=== PATIENT | male | born 1950 | race Caucasian/White ===

== ENCOUNTER → 2017-05-06 | Day surgery (SDC) | payer MEDICARE ==
[~2017-05-06] MED LIST: ASPI81 PO; ATOR80TA41 PO; BUPIVACAINE HCL PF 0.5% 30 ML VIAL ONE; CLON1TAB PO; KETOROLAC TROMETHAMINE 30 MG/ML (IVP) VIAL IV PUSH ONE; LISI5 PO; MEDR4PAK3 PO; MEPERIDINE HCL 50 MG/ML VIAL ONE; METO25 PO; MIDAZOLAM HCL 2 MG/2 ML VIAL ONE; NORC10TA2 PO; ONDANSETRON HCL 4 MG/2 ML VIAL IV PUSH ONE; OXYC10TA8 PO; PERC10TA27 PO; PROPOFOL 200 MG/20 ML AMP IV ONE; SODIUM CHLOR 0.9% 1000 ML BAG IV ONE; TICA90 PO; ceFAZolin 2 GM PREMIX 50 ML ONE
--- NOTE | 2017-05-06 10:48 | MP ---
cc: TARA PRIEST DATE OF SURGERY: 05/06/2017 PREOPERATIVE DIAGNOSIS Right foot painful ankle mass. POSTOPERATIVE DIAGNOSIS 1. Right ankle mass. 2. Right ankle capsule thickening. 3. Right talar bone lesion. PROCEDURES PERFORMED 1. Excision of right ankle soft tissue lesion. 2. Capsular debridement right ankle. 3. Bone debridement right talus. PATHOLOGY SENT Soft tissue from the right ankle sent to pathology. ESTIMATED BLOOD LOSS 50 mL. ANESTHESIA General. HEMOSTASIS Pneumatic calf tourniquet at 250 mmHg for 90 minutes. MATERIALS USED Include 3-0 Monocryl, 3-0 Prolene and a surgical drain. INJECTABLES 10 ccs of 0.5% Marcaine plain. COMPLICATIONS None. INDICATIONS Mr. Grove is a 66-year-old male patient well-known to me with severe arthritis, post-traumatic of bilateral ankles. The left ankle ultimately needed fusion or an ankle joint replacement. However, the patient is not ready to commit to that at this time but the right ankle has a painful mass on the anterior lateral aspect which limits ambulation and he would like to have this removed at this time in preparation for ultimately fusing the left ankle joint. The consent was signed and the procedure was explained. No guarantees were given. PROCEDURE Under mild sedation the patient was brought into the operating room, placed on the operating table in the supine position. Following IV sedation a pneumatic calf tourniquet was put around the right calf. The foot was then scrubbed, prepped and draped in usual aseptic manner. An Esmarch bandage was used to exsanguinate the right foot and pneumatic calf tourniquet was inflated to 250 mmHg. Attention was directed to the anterior lateral ankle where a large firm palpable mass was felt. A curvilinear incision was created over this mass, deepened through skin and subcutaneous tissue with care being taken to identify and retract any vital neurovascular structures. Subcutaneous layer was very thickened and scarred. Once it was incised there is copious amounts of thickened scar tissue and cicatrix as well as questionable ganglion cyst, bone fragments and a very thickened ankle capsule. All of this was sharply removed using a scalpel and a rongeur until a more anatomical shape could be identified. During the procedure it was of note that a large amount on the soft tissue abnormality and the bone fragments were stemming from the talar neck. After further debridement and cleansing with sterile saline it was noted that there was a large area of bony erosion at the lateral aspect of the talar neck and the bone would bleed with debridement and did appear to be viable. It did not appear to extend into the articulating cartilage aspect of the talus. This area was debrided and sealed using bone wax. All areas were again flushed with copious amounts of sterile saline. The capsule was debulked and debrided to allow for layered closure but none of the redundant excessive tissue. Capsule was reapproximated with 3-0 Monocryl as was deep and subcutaneous tissues. A surgical drain was then placed to prevent hematoma and skin was closed with 3-0 Prolene. There is minimal skin tension noted. 10 ccs of 0.5% Marcaine plain were injected around the incision site into the subcutaneous tissues. A sterile pneumatic calf tourniquet was released. There was a prompt hyperemic response to all digits of the right foot. A sterile dressing with Adaptic, 4x4s, abdominal pads a well-padded posterior splint was applied. The patient tolerated the procedure and anesthesia well. Will recover in the PACU for a period of time before being discharged home with written and oral postoperative instructions. Tara SMITH /9:37 AM /10:14 AM
== END | disposition home or self-care (01) ==
LOC: ESDC 06:19
PROVIDERS: ATTEND Podiatrist Foot & Ankle Surgery
DX: R22.41 Localized swelling, mass and lump, right lower limb (principal); M77.51 Other enthesopathy of right foot and ankle; M67.271 Synovial hypertrophy, not elsewhere classified, right ankle and foot; M93.271 Osteochondritis dissecans, right ankle and joints of right foot; M65.9 Synovitis and tenosynovitis, unspecified
CPT/HCPCS: 01480; 27635; 28120; 88305; 88311; J0690; J1885; J2175; J2250; J2405; J3010; J7030

== ENCOUNTER 2017-09-26 06:18 | Emergency (ER) | payer MEDICARE ==
[2017-09-26] MEDS: KETOROLAC TROMETHAMINE 60 MG/2 ML (IM) VIAL IM (07:16)
[2017-09-26] MEDS: predniSONE 20 MG TAB PO (07:16)
== END 2017-09-26 07:46 | disposition home or self-care (01) ==
LOC: NEPD 06:18
DX: M54.42 Lumbago with sciatica, left side (principal); F17.210 Nicotine dependence, cigarettes, uncomplicated; Z79.82 Long term (current) use of aspirin; Z79.899 Other long term (current) drug therapy
CPT/HCPCS: 96372; 99284-25